=== PATIENT | male | born 1965 | race Caucasian/White ===

== ENCOUNTER 2017-06-22 17:28 | Emergency (ER) | payer OTHER ==
[2017-06-22 17:34] VITALS: BP 137/83
[2017-06-22] MEDS ORDERED: FLUOROMETHOLONE 5 ML OPHT.BTL EACHEYE ONE (17:36)
[2017-06-22] MEDS ORDERED: FLUORESCEIN SOD/BENOXINATE HCL 20 DROPS/ML OPHT.BTL ONE (17:38)
--- NOTE | 2017-06-22 17:52 | EDPHY ---
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 He was underneath the vehicle and felt piece of rust enter his face. He was not using any grinding equipment, was not hammering. No exposure to high speed projectiles. This occurred earlier today. Denies visual acuity changes. He forgot to bring his glasses. PHYSICAL EXAM (Prior to examination, patient consented to physical exam, hands were washed and my usual and customary physical exam procedures followed) 1) GENERAL: Well-developed, well-nourished, alert and oriented. Appears to be in no acute distress. 2) HEAD: Normocephalic 3) OCULAR EXAM: Visual Acuity: Patient does not have his glasses with him Pupils:equal round and reactive to light EOMI Lids: no edema or swelling, upper and lower lids were everted and no foreign bodies were visualized, no areas of increased fluorescein uptake. On the upper eyelid a single black foreign body is visualized in the location as his corneal abrasion. This is easily removed with a sterile Q-tip. There is no rust ring. Skin: no proptosis, no periorbital erythema or swelling, no vesicles, no pain with extraocular movements. Conjunctivae: not injected, no discharge, negative Nelda test. Cornea: exam with fluorescein showsa vertically-oriented corneal abrasion . No foreign object on the cornea. Anterior chamber:normal, no hyphema or hypopyon Smoking Status: Never smoked Constitutional: Initial Vital Signs Temperature (C) 36.6 C 06/22/17 17:31 Heart Rate 68 06/22/17 17:31 Respiratory Rate 16 06/22/17 17:31 Blood Pressure 137/83 H 06/22/17 17:31 O2 Sat (%) 96 06/22/17 17:31 O2 Delivery Mode Room Air Allergies/Adverse Reactions: cold medicines Allergy (Uncoded 06/22/17 17:31) Home Medications: Medication Instructions Recorded NK [No Known Home Meds] 06/22/17 MDM/Departure - [facility] ED Course/Re-evaluation: The patient had a single metallic appearing foreign body on the left upper lid which is removed. He had a corresponding corneal abrasion at same location. He is started on Ocuflox drops given to him in the ER. His tetanus is updated. This is a work comp related injury. Given him ophthalmology follow-up information for Sunday (today is Sunday). Usual customary ophthalmological precautions instructions. He had no exposure to high speed projectiles. I do not think that radiographic imaging is indicated of the orbits as I think that retained intraorbital foreign body is less than likely, negative Nelda. Care of patient under supervision of secondary supervising physician Dr Hedrick . - Depart Disposition: Home, Routine, Self-Care Clinical Impression: Foreign body of left eye Qualifiers: Encounter type: initial encounter Qualified Code(s): T15.92XA - Foreign body on external eye, part unspecified, left eye, initial encounter Corneal abrasion, left Qualifiers: Encounter type: initial encounter Qualified Code(s): S05.02XA - Injury of conjunctiva and corneal abrasion without foreign body, left eye, initial encounter Condition: Good Instructions: Ofloxacin (Into the eye), Corneal Abrasion (ED), Eye Foreign Body (ED) Additional Instructions: Return to the ER if you develop new or worsening symptoms, if you develop visual acuity changes or any other symptoms that concern you. Stand Alone Forms: Work Comp Follow Up Referrals: Lai Mayer MD [Medical Doctor] - 1-2 days without fail
[2017-06-22] MEDS ORDERED: OFLOXACIN 0.3% SOLN PREPACK OPHT.BTL TAKEHOME ONE (17:54)
[2017-06-22] MEDS ORDERED: TDAP ADULT 0.5 ML INJ (BOOSTRIX) IM ONE (17:54)
== END 2017-06-22 18:10 | disposition home or self-care (01) ==
PROC: 3E0234Z Introduction of Serum, Toxoid and Vaccine into Muscle, Percutaneous Approach (ICD-10-PCS; principal; 2017-06-22)
DX: T15.92XA Foreign body on external eye, part unspecified, left eye, initial encounter (principal); Z23 Encounter for immunization; X58.XXXA Exposure to other specified factors, initial encounter; Y92.69 Other specified industrial and construction area as the place of occurrence of the external cause; Y99.0 Civilian activity done for income or pay; Y93.89 Activity, other specified